=== PATIENT | female | born 1990 | race Two or more races ===

== ENCOUNTER → 2025-07-14 | Outpatient (CLI) | payer BC, SELFPAY ==
--- NOTE | 2025-07-14 13:57 | XR_ITS ---
EXAMINATION: Ultrasound soft tissue neck TECHNIQUE: Grayscale sonographic images soft tissue neck Date and time: July 14, 2025, 1430 hours INDICATIONS: Palpable lump in the neck midline noticed beginning 6 months ago, family history of thyroid cancer. FINDINGS: No cystic or solid masses noted IMPRESSION: No cystic or solid masses noted As clinically warranted, consider CT soft tissue neck post intravenous contrast follow-up
--- NOTE | 2025-07-14 13:57 | XR_ITS ---
EXAMINATION: Thyroid sonography complete TECHNIQUE: Grayscale sonographic images thyroid lobes Date and time: July 14, 2025, 1426 hours INDICATIONS: Patient states palpable mid neck lump 6 months, family history, father, thyroid cancer FINDINGS: Right thyroid 4.5 cm No solid nodules Left thyroid 4.1 cm Upper pole 4 mm cyst IMPRESSION: Small benign cyst upper pole left thyroid
--- NOTE | 2025-07-14 14:00 | XR_ITS ---
Examination: Knee bilateral, 4 views Technique: Knee AP, lateral, each knee total 4 views Date and time of exam: July 14, 2025, 1442 hours INDICATIONS: Knee pain months FINDINGS: No fracture or dislocation involving either knee No arthritic change No ossified joint bodies IMPRESSION: Negative for osseous abnormalities
== END | disposition home or self-care (01) ==
PROVIDERS: PCP Nurse Practitioner Family; Referring Provider Nurse Practitioner Family; Visit Provider Nurse Practitioner Family
DX: M25.562 Pain in left knee (principal); M25.561 Pain in right knee; E04.1 Nontoxic single thyroid nodule; Z80.8 Family history of malignant neoplasm of other organs or systems
CPT/HCPCS: 73560; 76536

== ENCOUNTER → 2025-08-22 | Outpatient (CLI) | payer BC, SELFPAY ==
[2025-08-23 12:12] LABS: RA Screen Negative (Negative)
[2025-08-29 06:45] LABS: ANA Screen, IFA POSITIVE (NEGATIVE); ANA Titer 1:160 titer; Hexagonal Phase Confirm NEGATIVE (NEGATIVE); PTT-LA Screen 41 seconds (< OR = 40); dRVVT Screen 21 seconds (< OR = 45)
== END | disposition home or self-care (01) ==
LOC: COPL 14:39
PROVIDERS: PCP Nurse Practitioner Family; Referring Provider Nurse Practitioner Family; Visit Provider Nurse Practitioner Family
DX: R53.83 Other fatigue (principal)
CPT/HCPCS: 36415; 85598; 85613; 85730; 86038; 86039; 86430